=== PATIENT | male | born 1965 | race Caucasian/White ===

== ENCOUNTER 2016-11-08 10:25 | Emergency (ER) | payer SELFPAY ==
[~2016-11-08] VITALS: Ht 177.8 cm; Wt 95.0 kg
[~2016-11-08 10:25] MED LIST: ASPI81TA82 PO; PRIL20TA2 PO
[2016-11-08 10:28] VITALS: BP 140/89; PULSE 84; RESP 15; TEMP 98.4; O2SAT 100
[2016-11-08 10:47] VITALS: BP 142/86; PULSE 75; RESP 15; O2SAT 98
[2016-11-08] MEDS ORDERED: SODIUM CHLORIDE 0.9% FLUSH 10 ML FLUSH IVF PRN (11:00)
[2016-11-08 11:32] VITALS: BP_SYST 142; BP_SYST 146; BP_DIAS 80; BP_DIAS 86; PULSE 75; RESP 15; O2SAT 99
--- NOTE | 2016-11-08 11:40 | PD ---
HPI Chief Complaint: Cardiac Complaint Time Seen by Provider: 10:40 Travel History International Travel<30 days: No Contact w/Intl Traveler<30days: No Traveled to known affect area: No History of Present Illness HPI Is a 51-year-old man who presents to the emergency department with multiple complaints. His complaints seem to center around fact he hasn't slept well in the past week or so. He states only slept for total of 3 hours. He states he is not really had trouble with this before. 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 He has a history of CAD and had a heart catheter done about 5 weeks ago, which showed some obstructive disease but not requiring intervention. Patient also complains of painful numbness and burning pain in his lower extremities. His last A1c was 9+. He is on 500 metformin twice a day. He states he didn't make any adjustments to his medicines after that. He apparently goes to some sort of after hours clinic in [place]. During these episodes he does endorse some intermittent chest tightness. He states it feels different than when he's had heart disease in the past. It's worse at night when he can't sleep. It is not associated with exertion. He developed what yard work couple days ago without any trouble or discomfort. History Past Medical History Narrative Medical CAD Diabetes BPH Tetanus Vaccination: < 5 Years Influenza Vaccination: Yes Social History Alcohol Use: No (60 DAYS CLEAN ) Tobacco Use: No Allergies-Medications (Allergen,Severity, Reaction): Coded Allergies: No Known Allergies (Unverified , 11/08/16) Reported Meds & Prescriptions Reported Meds & Active Scripts Active Reported Prilosec Otc (Omeprazole Magnesium) 20 Mg Tab 20 Mg PO DAILY Aspir-81 (Aspirin) 81 Mg Tab 81 Mg PO DAILY Review of Systems Except as stated in HPI: all other systems reviewed are Neg Physical Exam Narrative GENERAL: Well-appearing 50 year-old woman, no acute distress. SKIN: Focused skin assessment warm/dry. HEAD: Atraumatic. Normocephalic. CARDIOVASCULAR: Regular rate and rhythm. No murmur appreciated. RESPIRATORY: No accessory muscle use. Clear to auscultation. Breath sounds equal bilaterally. GASTROINTESTINAL: Abdomen soft, non-tender, nondistended. Hepatic and splenic margins not palpable. MUSCULOSKELETAL: No obvious deformities. No clubbing. No cyanosis. No edema. NEUROLOGICAL: Awake and alert. No obvious cranial nerve deficits. Motor grossly within normal limits. Normal speech. PSYCHIATRIC: Speech is a little bit rapid. Is a little bit loosened and his associations a little bit grandiose. There is no evidence of delusions, hallucinations, or psychosis. Reality testing appears intact. Data Data Last Documented VS Vital Signs Date Time Temp Pulse Resp B/P Pulse Ox O2 Delivery O2 Flow Rate FiO2 11/08/16 11:32 146/80 11/08/16 11:32 75 15 99 Nasal Cannula 2 11/08/16 10:28 98.4 Orders Electrocardiogram (11/08/16 11:00) Complete Blood Count With Diff (11/08/16 11:00) Comprehensive Metabolic Panel (11/08/16 11:00) Magnesium (Mg) (11/08/16 11:00) Prothrombin Time / Inr (Pt) (11/08/16 11:00) Act Partial Throm Time (Ptt) (11/08/16 11:00) Troponin I (11/08/16 11:00) Chest, Single Ap (11/08/16 11:00) Ecg Monitoring (11/08/16 11:00) Bilateral Bp Monitoring (11/08/16 11:00) Iv Access Insert/Monitor (11/08/16:00) Oximetry (11/08/16 11:00) Oxygen Administration (11/08/16 11:00) Sodium Chloride 0.9% Flush (Ns Flush) (11/08/16 11:00) Drug Screen, Random Urine (11/08/16 11:00) Labs Laboratory Tests Test 11/08/16 11:15 White Blood Count 7.2 TH/MM3 Red Blood Count 4.47 MIL/MM3 Hemoglobin 10.7 GM/DL Hematocrit 34.3 % Mean Corpuscular Volume 76.9 FL Mean Corpuscular Hemoglobin 23.9 PG Mean Corpuscular Hemoglobin 31.1 % Concent Red Cell Distribution Width 17.5 % Platelet Count 341 TH/MM3 Mean Platelet Volume 7.9 FL Neutrophils (%) (Auto) 55.0 % Lymphocytes (%) (Auto) 32.6 % Monocytes (%) (Auto) 8.9 % Eosinophils (%) (Auto) 2.2 % Basophils (%) (Auto) 1.3 % Neutrophils # (Auto) 4.0 TH/MM3 Lymphocytes # (Auto) 2.4 TH/MM3 Monocytes # (Auto) 0.6 TH/MM3 Eosinophils # (Auto) 0.2 TH/MM3 Basophils # (Auto) 0.1 TH/MM3 CBC Comment DIFF FINAL Differential Comment Prothrombin Time 10.2 SEC Prothromb Time International 0.9 RATIO Ratio Activated Partial 26.4 SEC Thromboplast Time Sodium Level 138 MEQ/L Potassium Level 3.8 MEQ/L Chloride Level 104 MEQ/L Carbon Dioxide Level 24.4 MEQ/L Anion Gap 10 MEQ/L Blood Urea Nitrogen 10 MG/DL Creatinine 0.92 MG/DL Estimat Glomerular Filtration 86 ML/MIN Rate Random Glucose 184 MG/DL Calcium Level 8.5 MG/DL Magnesium Level 2.4 MG/DL Total Bilirubin 0.3 MG/DL Aspartate Amino Transf 21 U/L (AST/SGOT) Alanine Aminotransferase 32 U/L (ALT/SGPT) Alkaline Phosphatase 74 U/L Troponin I LESS THAN 0.02 NG/ML Total Protein 7.7 GM/DL Albumin 3.6 GM/DL Urine Opiates Screen NEG Urine Barbiturates Screen NEG Urine Amphetamines Screen NEG Urine Benzodiazepines Screen NEG Urine Cocaine Screen NEG Urine Cannabinoids Screen NEG MDM Medical Decision Making Medical Screen Exam Complete: Yes Emergency Medical Condition: Yes Interpretation(s) Review of EKG: Normal sinus rhythm at a rate of 66, leftward axis, normal intervals, no definite evidence of acute ischemia. LABS: CBC remarkable for mild anemia, microcytic indices CMP is unremarkable Troponins negative Magnesium is 2.4 Coags unremarkable Chest x-ray: Negative Differential Diagnosis Hypomania, drug use, anxiety, personality disorder, other Narrative Course Medical decision making INITIAL: 51-year-old man, presents to the emergency department complaining of not sleeping well primarily, as well as some neuropathic pain and some chest tightness. The chest tightness does not seem to be cardiac. We'll check EKG and troponin. Patient states she's done well with the Ambien and would best in the past. His primary care doctor seems to be through a after hours clinic in [place] but he states he does see the same doctor regularly can see them for follow-up. Diagnosis Primary Impression: Insomnia Additional Instructions: Take Klonopin sparingly just at night. Do not combine with alcohol. Follow-up with your primary doctor in the next 2-3 days. Return to the emergency department for any new or worsening symptoms. Med/Other Pt SpecificInfo: Prescription(s) given Scripts Clonazepam (Klonopin)1 Mg Tab1 Mg PO HS #7 TAB Ref 0 Prov:Yovani Fried MD 11/08/16 Disposition: 01 DISCHARGE HOME Condition: Stable Yovani Fried MD November 08, 2016 11:40
[2016-11-08 11:46] LABS: BASOPHIL # 0.1 TH/MM3 (0-0.2); BASOPHIL % 1.3 % (0.0-2.0); EOSINOPHIL # 0.2 TH/MM3 (0-0.4); EOSINOPHIL % 2.2 % (0.0-4.0); HEMATOCRIT 34.3 % (39.0-51.0); HEMO FLAGS DIFF FINAL; LYMPH % 32.6 % (9.0-44.0); LYMPHOCYTE # 2.4 TH/MM3 (1.0-4.8); MEAN CELL VOLUME 76.9 FL (80.0-100.0); MEAN CORPUSCULAR HEMOGLOBIN 23.9 PG (27.0-34.0); MEAN CORPUSCULAR HGB CONC 31.1 % (32.0-36.0); MONO % 8.9 % (0.0-8.0); PLATELET COUNT 341 TH/MM3 (150-450); RED BLOOD COUNT 4.47 MIL/MM3 (4.50-5.90); RED CELL DISTRIBUTION WIDTH 17.5 % (11.6-17.2); WHITE BLOOD COUNT 7.2 TH/MM3 (4.0-11.0)
[2016-11-08 11:55] LABS: APTT (PATIENT) 26.4 SEC (24.3-30.1); INTERNATIONAL NORMALIZED RATIO 0.9 RATIO; PROTHROMBIN TIME - PATIENT 10.2 SEC (9.8-11.6)
[2016-11-08 12:02] LABS: ANION GAP 10 MEQ/L (5-15); AST (GOT) 21 U/L (15-37); BICARBONATE 24.4 MEQ/L (21.0-32.0); BLOOD UREA NITROGEN 10 MG/DL (7-18); CHLORIDE 104 MEQ/L (98-107); GLOMERULAR FILTRATION RATE 86 ML/MIN (>89); MAGNESIUM 2.4 MG/DL (1.5-2.5); POTASSIUM 3.8 MEQ/L (3.5-5.1); SODIUM (NA) 138 MEQ/L (136-145)
--- NOTE | 2016-11-08 12:03 | RADRPT ---
EXAM DATE/TIME: 11/08/2016 11:09 [facility] COMPARISON: No previous studies available for comparison. INDICATIONS : Chest pains, 4 cardiac stents. MEDICAL HISTORY : Myocardial infarction. SURGICAL HISTORY : Coronary artery stent. ENCOUNTER: Initial ACUITY: 1 day PAIN SCORE: 4/10 LOCATION: Bilateral chest FINDINGS: A single view of the chest demonstrates the lungs to be symmetrically aerated without evidence of mas s, infiltrate or effusion. The cardiomediastinal contours are unremarkable. Osseous structures are intact. CONCLUSION: No acute disease. Ward Costello MD on November 08, 2016 at 12:01 Board Certified Radiologist. This report was verified electronically.
[2016-11-08 12:07] LABS: ALKALINE PHOSPHATASE 74 U/L (45-117); ALT (GPT) 32 U/L (12-78); TOTAL BILIRUBIN ADULT 0.3 MG/DL (0.2-1.0)
[2016-11-08 12:28] LABS: AMPHETAMINE, URINE NEG (NEG); BARBITURATES, URINE NEG (NEG); COCAINE, URINE NEG (NEG)
[2016-11-08] MEDS ORDERED: CLON1 PO (12:56)
[2016-11-08] MEDS ORDERED: AMBI5TAB PO (13:43)
--- NOTE | 2016-11-08 20:09 | EKG ---
Date Performed: 11/08/2016 Time Performed: 11:01:28 PTAGE: 51 years EKG: Sinus rhythm MODERATE VOLTAGE CRITERIA FOR LVH, CONSIDER NORMAL VARIANT BORDERLINE ECG Compared to prior tracing no significant change DOCTOR: Roe Zelaya Interpretating Date/Time 11/08/2016 20:07:40
== END 2016-11-08 13:55 | disposition home or self-care (01) ==
LOC: NEPE 10:25
DX: G47.00 Insomnia, unspecified (principal); R07.89 Other chest pain; R20.2 Paresthesia of skin; R20.0 Anesthesia of skin; G62.9 Polyneuropathy, unspecified; R94.31 Abnormal electrocardiogram [ECG] [EKG]; E11.9 Type 2 diabetes mellitus without complications; Z86.79 Personal history of other diseases of the circulatory system; Z87.438 Personal history of other diseases of male genital organs
CPT/HCPCS: 71010; 80053; 80307; 83735; 84484; 85025; 85610; 85730; 93005; 99285